=== PATIENT | male | born 1960 | race African-American/Black ===

== ENCOUNTER 2025-05-15 22:58 | Emergency (ER) | payer MEDICAID ==
[~2025-05-15] VITALS: Ht 177.8 cm; Wt 77.0 kg
[2025-05-15 23:01] VITALS: BP 110/70; PULSE 70; RESP 12; TEMP 36.8; O2SAT 97
== END 2025-05-16 02:48 | disposition home or self-care (01) ==
LOC: ER 22:58
DX: J45.909 Unspecified asthma, uncomplicated (principal); I10 Essential (primary) hypertension
CPT/HCPCS: 71045; 93005; 99283